=== PATIENT | female | born 1965 | race Caucasian/White ===

== ENCOUNTER 2017-02-02 13:56 | Emergency (ER) | payer SELFPAY ==
[~2017-02-02] VITALS: Ht 147.3 cm; Wt 45.4 kg
--- NOTE | 2017-02-02 16:25 | NUR ---
MSE COMPLETED, LEFT THUMB LACERATION WAS CLEANED,DR GUTHRIE PLACED DERMABOND TO SITE , I THEN PLACED DRESSING AND D/C'D PT HOME. ACI/RX X1 GIVEN. PT AMBULATED W/O DIFF/TOOK ALL BELONGINGS.
[2017-02-02 16:27] VITALS: BP 118/74
== END 2017-02-02 16:27 | disposition home or self-care (01) ==
LOC: ER 14:04
DX: S61.012A Laceration without foreign body of left thumb without damage to nail, initial encounter (principal); W26.8XXA Contact with other sharp object(s), not elsewhere classified, initial encounter; Y93.89 Activity, other specified; Y92.89 Other specified places as the place of occurrence of the external cause; Y99.8 Other external cause status
CPT/HCPCS: 12001; 99283; A4217; A4663